=== PATIENT | male | born 1990 | race Two or more races ===

== ENCOUNTER 2023-09-22 08:19 | Emergency (ER) | payer OTHER, SELFPAY ==
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
[2023-09-22 08:38] VITALS: BP 124/70; BP 130/80; PULSE 76; PULSE 81; RESP 16; TEMP 36.8; O2SAT 97; O2SAT 99; BMI 24.4
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
[2023-09-22] MEDS: Ibuprofen 800 MG TABLET PO (10:37)
[2023-09-22 10:38] VITALS: RESP 18
== END 2023-09-22 12:52 | disposition home or self-care (01) ==
PROVIDERS: Emergency Provider Emergency Medicine
DX: M54.50 Low back pain, unspecified (principal); Z04.1 Encounter for examination and observation following transport accident
CPT/HCPCS: 72100; 99283; 99284

== ENCOUNTER 2024-02-04 13:19 | Emergency (ER) | payer MEDICAID, SELFPAY ==
--- NOTE | ~2024-02-04 | XR_ITS ---
EXAMINATION: XR HAND, LEFT CLINICAL INFORMATION: Pain, injury COMPARISON: None available. TECHNIQUE: PA, lateral, and oblique views of the left hand. FINDINGS: The bones and soft tissues are normal. No fracture. Alignment is anatomic. Joint spaces are maintained. No erosions or soft tissue calcifications. No radiopaque foreign body. XR/XR hand LT min 3V IMPRESSION: Normal exam. No evidence of acute fracture or malalignment in the hand or wrist.
[2024-02-04 13:25] VITALS: BP 120/69; PULSE 68; RESP 16; TEMP 36.8; O2SAT 100; BMI 32.5
--- NOTE | 2024-02-04 13:26 | ED.GENADULT ---
HPI - General Adult General Chief complaint: Wound/Laceration Stated complaint: L hand lac Time Seen by Provider: 02/04/24 13:39 Source: patient, RN notes reviewed and old records reviewed Mode of arrival: ambulatory Limitations: no limitations History of Present Illness HPI narrative: 33 year old right hand dominant male with no significant pmhx presents to the ED for evaluation of laceration to left palm sustained while attempting to open a box with a knife prior to arrival. Admits the knife grazed the palm. Denies any difficulty with ROM to fingers on left hand or left wrist. No active bleeding. No FB sensation. He is unsure of last tetnus shot. Denies fever, chills, numbness/tingling/weakness of the LUE. Related Data Previous Rx's ?Medication ?Instructions ?Recorded cyclobenzaprine 10 mg tablet 10 mg PO TID PRN muscle spasm 7 09/22/23 days #21 tabs naproxen 500 mg tablet 500 mg PO BID PRN pain 7 days #14 09/22/23 tabs Allergies Allergy/AdvReac Type Severity Reaction Status Date / Time No Known Allergies Allergy Verified 02/04/24 13:30 Review of Systems Review of Systems: Constitutional: No fever, chills, fatigue, night sweats, weight changes ENT/Mouth: No ear pain, hearing loss, nasal congestion, sinus pain, rhinorrhea, sore throat Eyes: No eye pain, swelling, redness, vision changes, discharge Cardio: No chest pain, palpitations, WHITLOCK, orthopnea, peripheral edema Pulm: No SOB, cough, sputum, wheezing, dyspnea, hemoptysis GI: No nausea, vomiting, hematemesis, abdominal pain, diarrhea, constipation, hematochezia, melena : No irregular bleeding, dysuria, frequency, urgency, hesitancy, hematuria, flank pain, urinary flow changes, urinary incontinence or retention MSK: No back pain, neck pain, joint pain, myalgias Skin: No lesions, rashes, +laceration to left palm Neuro: No weakness, numbness, paresthesias, LOC, dizziness, headache Psych: No anxiety/panic, depression, SI/HI, AH/VH All other systems reviewed and are negative. [facility] Past Medical History Attestation statement: The following information was validated with the patient. Source: old records reviewed and nursing notes reviewed Social History Social History Advance Directives: No Advance Directives Information Provided: No Do you have a plan to hurt others: No Plan Physical Exam ED Vital Signs: Vital Signs - 24 hr 02/04/24 13:25 02/04/24 15:19 Temperature 98.3 F 98 F Pulse Rate 68 70 Respiratory Rate 16 18 Blood Pressure 120/69 118/68 Pulse Oximetry 100 99 Oxygen Delivery Method Room Air Room Air BMI result Body Mass Index 32.5 Vital signs stable Const General: cooperative, healthy appearing, comfortable and no acute distress Orientation/consciousness: patient oriented x3 Limitations: no limitations HENMT Head: Yes normal to inspection, Yes No palpable skull fracture present, Yes normocephalic and Yes atraumatic Eyes General: appearance normal, both eyes and all related structures Conjunctivae: conjunctivae normal Sclerae: sclerae normal Pupils: Equal, round and reactive pupils present Neck Neck: Yes normal visual inspection Resp Effort & Inspection: normal respiratory effort and able to speak in complete sentences Cardio Rate: regular rate Rhythm: regular rhythm Skin Other: + 0.5 cm superficial linear laceration noted to the center of left palm. no involvement of deeper structures. no active bleeding or purulent discharge. no surrounding erythema. no obvious FB. slightly ttp. no palpable deformity, fb, or flutuance. Neuro General: patient oriented x3 and gait normal Cranial nerves: Yes Equal, round and reactive pupils present Extrem Other: + see above. Course Course Course Narrative: RME performed by Luzma Villar PA-C. Patient is a 33 year old assigned male at presenting to the emergency department with a left hand laceration. Patient states he was cutting open a package with a knife when he accidentally stabbed his left hand. Patient states that he does not know his last tetanus. Detailed physical exam and review of systems are deferred to the electro mechanic. Patient placed back in the waiting room pending room availability and results. Medications Administered Discontinued Medications Generic Name Dose Route Start Last Admin Trade Name Freq PRN Reason Stop Dose Admin Diphtheria/Tetanus/Acell Pertussis 0.5 ml 02/04/24 13:28 02/04/24 13:54 Diphth,Pertus(Acell),Tet Adult 0.5 Ml Syringe IM 02/04/24 13:29 0.5 ml .ONCE ONE Administration Procedures Laceration Laceration 1: Site: hand Side (If applicable): left Size (cm): 0.5 Description: linear Depth: simple, single layer Technique: other (dermabond) Medical Decision Making Medical Decision Making MDM Narrative: 33 year old right hand dominant male with no significant pmhx presents to the ED for evaluation of laceration to left palm sustained while attempting to open a box with a knife prior to arrival. Vital signs stable. Afebrile. He is nontoxic-appearing and in no acute distress. Lying comfortably on exam bed. On exam, 0.5 cm superficial linear laceration noted to the center of left palm. no involvement of deeper structures. no active bleeding or purulent discharge. no surrounding erythema. no obvious FB. slightly ttp. no palpable deformity, fb, or fluctuance. Differential diagnosis includes abrasion, laceration. Low suspicion for fracture, retained foreign body. Unlikely cellulitis, sepsis, open fracture, nv compromise, threat to limb, lypmhangitis. Plan for xrays, tetanus booster, lac repair. Differential Diagnosis Differential Diagnoses: The differential diagnosis associated with the presentation includes as above. Admission/Observation Not indicated Independent Interpretation I performed an independent interpretation of an: Plain X-Ray Interpretation: X-ray of left hand without radiopaque foreign body, agree with radiologist's interpretation. Radiology Impression Discussion of test interpretation with radiology: I have reviewed the radiologist's reading. Radiologist Impression: EXAMINATION: XR HAND, LEFT CLINICAL INFORMATION: Pain, injury COMPARISON: None available. TECHNIQUE: PA, lateral, and oblique views of the left hand. FINDINGS: The bones and soft tissues are normal. No fracture. Alignment is anatomic. Joint spaces are maintained. No erosions or soft tissue calcifications. No radiopaque foreign body. XR/XR hand LT min 3V IMPRESSION: Normal exam. No evidence of acute fracture or malalignment in the hand or wrist. External Record Review External record reviewed: Inpatient record Prescription Management I considered prescription management with: Pain Medication Social Determinants Patient?s care significantly limited by Social Determinants of Health including: Other Social Determinant of Health Critical Care Time Critical Care Time Critical Care Time: No Discharge Plan Discharge Clinical Impression: Laceration of left palm without complication Patient Disposition: Home, Self-Care Instructions: Laceration (ED) Additional Instructions: You were seen in the ED today for laceration to left palm. Your xrays are normal. Your tetanus shot was updated today and should stay up-to-date for the next 10 years. This was closed with dermabond (skin glue). Keep the area clean, dry, intact. If the area begins to bleed, apply direct pressure for at least 15 minutes. If you are unable to control the bleeding please return to the ED. You may take Tylenol at home as needed for pain/discomfort. Return with new or worsening symptoms. Follow-up with PCP as needed. The case of an emergency call 911. Prescriptions: No Action naproxen 500 mg tablet 500 mg PO BID PRN (Reason: pain) 7 Days Qty: 14 0RF cyclobenzaprine 10 mg tablet 10 mg PO TID PRN (Reason: muscle spasm) 7 Days Qty: 21 0RF Rx Instructions: side effect is drowsiness Referrals: [facility] [place] [facility] [place]Provider Group] [facility] [place] [facility]Provider Group] [facility] [place] [facility] [Provider Group] Stand Alone Forms: Work/School Release Print Language: Upper Sorbian
[2024-02-04] MEDS: Diphth,Pertus(ACell),Tet Adult 0.5 ML SYRINGE IM (13:54)
--- NOTE | 2024-02-04 13:57 | PC.NURSE ---
tdap given R deltoid, pt tolerated well.
[2024-02-04 15:19] VITALS: BP 118/68; PULSE 70; RESP 18; TEMP 36.6; O2SAT 99
[2024-02-04 15:36] VITALS: BP 118/68; PULSE 70; RESP 18; TEMP 36.7; O2SAT 99
== END 2024-02-04 15:37 | disposition home or self-care (01) ==
PROVIDERS: Emergency Provider Student in an Organized Health Care Education/Training Program
DX: S61.412A Laceration without foreign body of left hand, initial encounter (principal); M79.642 Pain in left hand; W26.0XXA Contact with knife, initial encounter; Y93.9 Activity, unspecified; Y92.9 Unspecified place or not applicable; Y99.8 Other external cause status; Z23 Encounter for immunization
CPT/HCPCS: 12011; 73130; 90471; 90715; 99282; 99284